=== PATIENT | male | born 1945 | race Caucasian/White ===

== ENCOUNTER → 2021-10-26 | Outpatient (CLI) | payer MEDICARE ==
[~2021-10-26] VITALS: Ht 172.7 cm; Wt 81.8 kg
[~2021-10-26] MED LIST: ASPI-999 PO; ATOR80TA76 PO; CLOP75TA69 PO; EMPA25TA PO; GABA-490 PO; INSU100I14 SQ; INSU100V6 SQ; LEVO125T6 PO; METF-846 PO; METO-451 PO; OLAN2.5T3 PO; OMEP20CA18 PO; OXYB5TAB13 PO; VNL75T PO
== END ==
LOC: PREOP 06:04
PROVIDERS: ATTEND Surgery
DX: Z01.818 Encounter for other preprocedural examination (principal); Z12.11 Encounter for screening for malignant neoplasm of colon

== ENCOUNTER 2021-11-02 09:46 | Day surgery (SDC) | payer MEDICARE, MEDICAID ==
[~2021-11-02] VITALS: Ht 172.7 cm; Wt 81.8 kg
--- NOTE | 2021-11-02 10:02 | Progress Note-Pre Operative ---
Pre-Operative Progress Note Date of Available H&P: Nov 02, 2021 Date H&P Reviewed: Nov 02, 2021 Time H&P Reviewed: 10:00 History & Physical: No changes noted Pre-Operative Diagnosis: ERASMO Woodson MD Nov 02, 2021 10:02
--- NOTE | 2021-11-02 10:04 | Discharge Inst-Surgical ---
D/C Lap Instructions-KRYSTEN Follow Up Activity as tolerated High Fiber Diet 25g or more per day Avoid Alcohol, Caffeine, Spicy Juda and Acid foods. Drink 64 fluid oz or more of fluids per day. Symptoms to Report: Fever over 101 degree F, Nausea/Vomiting If any problems/questions: Contact your physician or go to Emergency Room ERASMO BASHIR MD Nov 02, 2021 10:04
[2021-11-02] MEDS ORDERED: LACTATED RINGERS 1,000 ML IV STA (10:12)
[2021-11-02] MEDS ORDERED: ONDANSETRON 4 MG/2 ML (SDV) Z0FRAN IVP PRN (10:15)
[2021-11-02] MEDS ORDERED: ONDANSETRON 4 MG (ZOFRAN) ORAL DISSOLVE TAB PO PRN (10:15)
[2021-11-02] MEDS ORDERED: LIDOCAINE JELLY 2% 6 ML SYRINGE MM PRN (10:15)
[2021-11-02 10:23] VITALS: BP 156/78
[2021-11-02] MEDS ORDERED: PROPOFOL INJECTION 50 ML IV ONE (11:19)
[2021-11-02] MEDS ORDERED: ESMOLOL 100 MG/10 ML (BREVIBLOC) VIAL ONE (11:47)
[2021-11-02 11:55] VITALS: BP 167/71
[2021-11-02 12:00] VITALS: BP 146/71
[2021-11-02 12:05] VITALS: BP 139/82
--- NOTE | 2021-11-02 12:10 | Anesthesia-General Post-Op ---
MAC Patient Condition Mental Status/LOC: Same as Preop Cardiovascular: Satisfactory Nausea/Vomiting: Absent Respiratory: Satisfactory Pain: Controlled Complications: Absent Post Op Complications Complications None Follow Up Care/Instructions Patient Instructions None needed. Anesthesiology Discharge Order Discharge Order Patient is doing well, no complaints, stable vital signs, no apparent adverse anesthesia problems. No complications reported per nursing. DEDE CHINCHILLA DO Nov 02, 2021 12:10
[2021-11-02 12:30] VITALS: BP 186/90
--- NOTE | 2021-11-02 13:25 | Progress Note-Post Operative ---
Post-Operative Progess Note Surgeon (s)/Gas Substation Operator (s) Surgeon ERASMO BASHIR MD Gas Substation Operator: none Pre-Operative Diagnosis screening Post-Operative Diagnosis polyp splenic flexure(3mm), hepatic flexure(8mm). Procedure & Operative Findings Date of Procedure 11/02/21 Procedure Performed/Findings colonoscopy with forcep bx and submucosal injection. Anesthesia Type mac Estimated Blood Loss Estimated blood loss (mL): minimal Specimens/Packing Specimens Removed splenic and hepatic flexure polyps ERASMO BASHIR MD Nov 02, 2021 13:25
[2021-11-02 14:15] VITALS: BP 186/90
--- NOTE | 2021-11-02 21:33 | OPERATIVE REPORT ---
DATE OF SERVICE: 11/02/2021 PRIMARY CARE PHYSICIAN: Dr. Silvana Metcalf. PREOPERATIVE DIAGNOSIS: Screening colonoscopy. POSTOPERATIVE DIAGNOSES: No significant hemorrhoids, sessile polyp of the distal transverse colon approximately 3 mm in size. A sessile polyp at the hepatic flexure, approximately 1 cm in size. PROCEDURE: Colonoscopy with forceps polypectomy and biopsy as well as submucosal injection. SURGEON: Erasmo Bradford MD. ANESTHESIA: Monitored anesthesia care. ESTIMATED BLOOD LOSS: Minimal. FINDINGS: No significant hemorrhoids, sessile polyp of the distal transverse colon approximately 3 mm in size. A sessile polyp at the hepatic flexure, approximately 1 cm in size. DISPOSITION: The patient tolerated the procedure well. INDICATIONS: The patient is a 75-year-old male referred over to us for screening colonoscopy. This is a resident of [facility] in [place], [place]. He has had two colonoscopies in the past and cannot remember when the last one was, however, probably over 10 years ago. Does not recall any abnormalities. He also does not report any major issues with diarrhea nor constipation as well as no red blood per rectum nor any dark tarry stools. He also does not recall any family history of colon cancer. DESCRIPTION OF PROCEDURE: The patient was brought to the endoscopy suite, laid in the left lateral decubitus position. After adequate IV pain and sedative medications and monitored anesthesia care, a digital rectal examination was performed. No significant hemorrhoids identified. Normal sphincter tone was felt and there were no palpable masses. Prostate gland was palpable and appeared normal. The endoscope was then intubated into the anus and rectum gently insufflated. The endoscope was then advanced through the valves of G[place] of the rectum with no polyps or any neoplasms identified. Through the sigmoid colon, no diverticulosis identified. At the level of the distal transverse colon, a small sessile polyp approximately 3 to 4 mm was identified. This was biopsied and cauterized using forceps. Good hemostasis was observed. The endoscope was then advanced to the hepatic flexure where a larger sessile polyp approximately 8 to 10 mm in size was identified. This was also indented, and multiple biopsies were taken with forceps and electrocautery with visualization of good hemostasis. We then proceeded with submucosal injection around the lesion with black ink. The endoscope was then advanced through the ascending colon to the cecum, which were normal. The endoscope was then slowly withdrawn while taking a second look and suctioning of residual air with no additional findings. The patient tolerated the procedure well. We will have him followup in approximately two weeks to discuss the pathology results as well as any further recommendations in terms of followup colonoscopies. Job ID: [id number] DocumentID: [id number] Dictated Date: 11/02/2021 12:04:11 Reconciliation Clerk Date: 11/02/2021 21:32:44 Dictated By: ERASMO BRADFORD MD
== END 2021-11-02 14:15 | disposition home or self-care (01) ==
LOC: ENDO 09:46
PROVIDERS: ATTEND Surgery
DX: Z12.11 Encounter for screening for malignant neoplasm of colon (principal); D12.3 Benign neoplasm of transverse colon; D37.4 Neoplasm of uncertain behavior of colon; Z87.891 Personal history of nicotine dependence
CPT/HCPCS: 82947